=== PATIENT | male | born 1955 | race Caucasian/White ===

== ENCOUNTER 2016-06-12 15:01 | Observation (INO) | payer BC ==
[2016-06-12] MEDS ORDERED: Aspirin Low Dose CHEW TAB* 81 MG PO ONE (15:03)
[2016-06-12] MEDS ORDERED: Morphine INJ* 2 MG/ML 1 ML SYRINGE IV PRN (15:28)
[2016-06-12] MEDS ORDERED: Ondansetron INJ* 2 MG/ML VIAL IV PRN (15:28)
[2016-06-12] MEDS ORDERED: Nitroglycerin TAB 0.4 MG* 0.4 MG TAB SL ONE (15:30)
--- NOTE | 2016-06-12 15:30 | RAD ---
HISTORY: Chest pain COMPARISONS: December 08, 2010 VIEWS:1: Single frontal portable view of the chest at 3:23 PM FINDINGS: LINES AND TUBES: None. CARDIOMEDIASTINAL SILHOUETTE: The cardiomediastinal silhouette is normal for portable technique. PLEURA: The costophrenic angles are sharp. No pleural abnormalities are noted. LUNG PARENCHYMA: There is a diffuse pattern of coarse reticular opacification with a more focal area of nodularity in the right upper lung. This is stable since 2010 consistent with benign nodule. ABDOMEN: The upper abdomen is clear. There is no subphrenic gas. BONES AND SOFT TISSUES: No bone or soft tissue abnormalities are noted. IMPRESSION: STABLE CHRONIC THORACIC CHANGES. NO ACTIVE CARDIOPULMONARY PULMONARY DISEASE
[2016-06-12 15:34] LABS: Hematocrit 36 % (42-52); Hemoglobin 12.4 g/dl (14.0-18.0); Mean Corpuscular HGB Conc 35 g/dl (31-36); Mean Corpuscular Hemoglobin 32 pg (27-31); Mean Corpuscular Volume 92 fL (80-94); Mean Platelet Volume 6 um3 (7.4-10.4); Red Blood Count 3.88 10^6/ul (4.0-5.4); Red Cell Distribution Width 13 % (10.5-15); White Blood Count 5.2 10^3/ul (3.5-10.8)
[2016-06-12 15:52] LABS: Albumin 4.4 g/dL (3.2-5.2); BUN/Creatinine Ratio 15.6 (8-20); Calcium 9.3 mg/dL (8.6-10.3); EGFR Non-African American 85.5 (>60); Globulin 2.6 g/dL (2-4); Potassium 4.1 mmol/L (3.5-5.0); Total Bilirubin 0.5 mg/dL (0.2-1.0)
--- NOTE | 2016-06-12 15:56 | ED ---
[place], DoctorSelena scribed for Anna Lin MD on 06/12/16 at 1509 . HPI Chest Pain - HPI Summary HPI Summary: 61 year old male arrived to [facility] c/o discomfort this morning in the chest pain/ discomfort. He indicates that he has been feeling indigestion for the past three days in the middle of the sternum; but did not feel any pain with exercise two days ago. 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 He is now feeling some discomfort in his chest and left shoulder, but the pain has reduced. He has a PMHx of seizures; no PMHx of HTN or DM. Pt denies any FHx of early CAD. - History of Current Complaint Chief Complaint: EDChestPainROMI Hx Obtained From: Patient Onset/Duration: Started Hours Ago Timing: Lasting Hours Initial Severity: Moderate Current Severity: Moderate Chest Pain Location: Mid Sternal Chest Pain Radiates: Yes Chest Pain Radiates To:: Shoulder Associated Signs and Symptoms: Positive: Chest Pain - Allergy/Home Medications Allergies/Adverse Reactions: Allergies Allergy/AdvReac Type Severity Reaction Status Date / Time Nitrofurantoin Allergy Rash Verified 06/16/15 15:05 [From Macrodantin] Home Medications: Home Medications carBAMazepine TAB(*) [TEGretol TAB(*)] 400 mg PO BID 06/12/16 [History Confirmed 06/12/16] PMH/Surg Hx/FS Hx/Imm Hx Endocrine/Hematology History: Denies: Hx Diabetes Cardiovascular History: Denies: Hx Hypertension Infectious Disease History: Denies: Traveled Outside the [place] in Last 30 Days - Family History Known Family History: Positive: Other - family history of AFib Negative: Cardiac Disease - Social History Occupation: Employed Full-time Lives: With Family Substance Use Type: Reports: None Hx Tobacco Use: No Smoking Status (MU): Never Smoked Tobacco Review of Systems Negative: Fever Positive: Chest Pain Positive: Other - indigestion Positive: Other - mild left shoulder pain All Other Systems Reviewed And Are Negative: Yes Physical Exam Triage Information Reviewed: Yes Vital Signs On Initial Exam: Initial Vitals Temp Pulse Resp BP Pulse Ox 97.7 F 91 16 135/85 98 06/12/16 15:10 06/12/16 15:10 06/12/16 15:10 06/12/16 15:10 06/12/16 15:10 Vital Signs Reviewed: Yes Appearance: Positive: Well-Appearing, No Pain Distress Skin: Positive: Warm, Skin Color Reflects Adequate Perfusion, Dry Eyes: Positive: EOMI, JUSTICE ENT: Positive: Pharynx normal, TMs normal Neck: Positive: Supple, Nontender Respiratory/Lung Sounds: Positive: Clear to Auscultation, Breath Sounds Present. Negative: Rales, Rhonchi, Wheezes Cardiovascular: Positive: RRR. Negative: Murmur, Rub Abdomen Description: Positive: Nontender, Soft. Negative: Distended, Guarding Bowel Sounds: Positive: Present Musculoskeletal: Positive: Strength/ROM Intact. Negative: Edema Left, Edema Right Neurological: Positive: Sensory/Motor Intact, Alert, Oriented to Person Place, Time, CN Intact II-III Psychiatric: Positive: Affect/Mood Appropriate Diagnostics - Vital Signs Vital Signs Temp Pulse Resp BP Pulse Ox 06/12/16 15:39 84 06/12/16 15:10 97.7 F 91 16 135/85 98 - Laboratory Lab Results: Lab Results 06/12/16 06/12/16 06/12/16 Range/Units 15:20 15:20 15:20 WBC 5.2 (3.5-10.8) 10^3/ul RBC 3.88 L (4.0-5.4) 10^6/ul Hgb 12.4 L (14.0-18.0) g/dl Hct 36 L (42-52) % MCV 92 (80-94) fL MCH 32 H (27-31) pg MCHC 35 (31-36) g/dl RDW 13 (10.5-15) % Plt Count 181 (150-450) 10^3/ul MPV 6 L (7.4-10.4) um3 Neut % (Auto) 63.0 (38-83) % Lymph % (Auto) 29.3 (25-47) % Barron % (Auto) 5.9 (1-9) % Eos % (Auto) 1.0 (0-6) % Baso % (Auto) 0.8 (0-2) % Absolute Neuts (auto) 3.3 (1.5-7.7) 10^3/ul Absolute Lymphs (auto) 1.5 (1.0-4.8) 10^3/ul Absolute Monos (auto) 0.3 (0-0.8) 10^3/ul Absolute Eos (auto) 0.1 (0-0.6) 10^3/ul Absolute Basos (auto) 0 (0-0.2) 10^3/ul Absolute Nucleated RBC 0 10^3/ul Nucleated RBC % 0 Sodium 138 (133-145) mmol/L Potassium 4.1 (3.5-5.0) mmol/L Chloride 103 (101-111) mmol/L Carbon Dioxide 30 (22-32) mmol/L Anion Gap 5 (2-11) mmol/L BUN 14 (6-24) mg/dL Creatinine 0.90 (0.67-1.17) mg/dL Est GFR ( Amer) 110.0 (>60) Est GFR (Non-Af Amer) 85.5 (>60) BUN/Creatinine Ratio 15.6 (8-20) Glucose 96 (70-100) mg/dL Lactic Acid 1.0 (0.5-2.0) mmol/L Calcium 9.3 (8.6-10.3) mg/dL Total Bilirubin 0.50 (0.2-1.0) mg/dL AST 18 (13-39) U/L ALT 27 (7-52) U/L Alkaline Phosphatase 72 (34-104) U/L Troponin I 0.00 (<0.04) ng/mL Total Protein 7.0 (6.4-8.9) g/dL Albumin 4.4 (3.2-5.2) g/dL Globulin 2.6 (2-4) g/dL Albumin/Globulin Ratio 1.7 (1-3) Result Diagrams: 06/12/16 15:20 06/12/16 15:20 Lab Statement: Any lab studies that have been ordered have been reviewed, and results considered in the medical decision making process. - EKG 15:06 Cardiac Rate: NL - 86 bpm EKG Rhythm: Sinus Rhythm - normal Ectopy: None EKG Interpretation: non-specific T-wave progression Chest Pain Course/Dx - Course Course Of Treatment: 61 yo male no cad risk factors who has been having "indigestion" like symptoms for the last few days but noted pressure starting an hour ago. Pt's ekg shows non-specific twave changes, Dr. Hicks was contacted to compare ekgs but his previous ekg is not available. Dr. Womack agreed for pt to be brought in as an obv. Pt is pain free now - Diagnoses Provider Diagnoses: Chest pain - Provider Notifications Discussed Care Of Patient With: 15:20 - Discussed care of pt with Dr. Barrios ( Hospitalist); Dr. Barrios agrees to admit him. Discharge - Discharge Plan Condition: Stable Disposition: ADMITTED TO [facility] The documentation as recorded by the Doctor gentile Tahera accurately reflects the service I personally performed and the decisions made by me, Anna Lin MD.
[2016-06-12] MEDS: Lidocaine 2% VISCOUS* 15 ML UDC PO ONE ×2 (16:00→16:47)
[2016-06-12] MEDS: Al Hydrox/Mg Hydrox/Simet LIQ* 30 ML UDC PO ONE ×2 (16:00→16:47)
[2016-06-12 18:14] LABS: Carbamazepine 10.6 mcg/mL (4.0-12.0)
[2016-06-12] MEDS ORDERED: Nitroglycerin TAB 0.4 MG* 0.4 MG TAB SL PRN (19:36)
[2016-06-12] MEDS ORDERED: Enoxaparin(*) 40 MG/0.4 ML SYR SUBCUT SCH (20:00)
[2016-06-12] MEDS: carBAMazepine TAB(*) 200 MG PO SCH (21:07)
[2016-06-12] MEDS ORDERED: Al Hydrox/Mg Hydrox/Simet LIQ* 30 ML UDC PO PRN (22:54)
--- NOTE | 2016-06-13 05:33 | PN ---
Progress Note - Progress Note Note: Seen ~2330 this shift after nursing reported return of sharp-reshma sub-sternal chest pressure, no radiation, SOB, N/V, palpitations, or light-headedness. 30cc Maalox minimally effective reducing from 4/10 to "slightly less". ECG benign. 2AM troponin was 0. Continue close monitoring, stress test reportedly planned for AM but no order seen.
--- NOTE | 2016-06-13 05:48 | HP ---
HISTORY AND PHYSICAL: DATE OF ADMISSION: 06/12/16 TIME OF MY EVALUATION: 2 p.m. PRIMARY CARE PROVIDER: Rakan Oquendo MD CHIEF COMPLAINT: Chest pain. 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 The patient has been feeling indigestion for several days over the weekend in the mid sternum. There was some radiation into his left upper arm. There was no association with pain. He did eat some spicy food over the weekend and he had classic indigestion; he thought that was the cause. However , one hour prior to presentation, he experienced substernal chest pressure, but he took TUMS x2 with no effect. The patient felt mild hunger pains and mild nausea, but no actual lightheadedness. He denied any diaphoresis or fainting. He denies any feelings of being ill. There was no upper respiratory infection, cough or sputum production. He denies any fevers. There has been no chest trauma or heavy lifting. He does have a stressful job. The patient denies any history of coronary artery disease. He had an echocardiogram after a workup for shortness of breath; this was several years ago, around 2011. The echocardiogram showed no wall motion abnormality and no valvular disease. He did have a stress test several years ago, again pursuant to his unexplained shortness of breath, and he had a rate-related left bundle branch block. Again, this was when he had his echocardiogram. The patient is currently chest pain free. He received aspirin in the emergency room, but has not received any anticoagulation. His initial troponin is zero. His EKG shows only nonspecific lateral T-wave flattening, not inversion. There are no ST segment elevations or depressions. The patient has got stable vital signs, and was referred to the hospitalist service for continuation of his rule out of myocardial infarction and potentially a stress test. PAST MEDICAL HISTORY: 1. Seizure disorder, stable on carbamazepine. 2. Shortness of breath with some nonspecific pulmonary fibrosis, but normal PFTs. FAMILY HISTORY: Significant for colon cancer, but also coronary disease in his parents, but this developed in their 70s and 80s. ALLERGIES: NITROFURANTOIN OUTPATIENT MEDICATION: Carbamazepine 400 mg by mouth twice daily - well tolerated, with normal levels demonstrated below. SOCIAL HISTORY: The patient is a physician learning and development administrator. He works at [employer]. He is nonsmoker and drinks alcohol only socially. He is with three children; everyone is healthy. His is also a physician and the surrogate decision maker. Her name is Mounika Ferguson, and she can be reached at . The patient is full code. REVIEW OF SYSTEMS: Review of 14 systems was accomplished at the bedside. It was largely negative except for the pertinent positives as mentioned above in the HPI and past medical history. In his GI system, I noted he has sigmoid diverticulosis and had some polyps removed in 2015. Again, the patient has not been sick. There are no urinary symptoms, no visual complaints, no dysphasia, but perhaps suboptimally-treated reflux. He tells me that he is concerned about PPI interactions with his carbamazepine, but has not tried different formulations or done research into which PPI might be plausible without interacting with the carbamazepine. No skin rashes or breakdown. No neurologic symptoms. PHYSICAL EXAMINATION ON ADMISSION GENERAL APPEARANCE: A middle-aged elderly appearing man, appears stated age, in no apparent distress. He is awake and alert, and oriented x3, answering questions appropriately, alert, interactive and pleasant. VITAL SIGNS: Temperature 97.7 degrees Fahrenheit, pulse rate initially 91, but down into the 70s thereafter, respirations 13-14 and regular, oxygen saturation 98% on room air, blood pressure 120s-130s/80s. HEENT: Oropharynx is clear. Mucous membranes are moist. NECK: Supple. No elevated JVD appreciated. LUNGS: Clear. Breath sounds anteriorly and posteriorly good breath excursions. HEART: Regular rate and rhythm. No murmurs or rubs appreciated. ABDOMEN: Soft and nontender. SKIN: Dry and intact throughout. EXTREMITIES: Without clubbing cyanosis or edema. NEUROLOGIC: He moves all extremities equally. He can ambulate independently. PSYCH: Normal affect. No acute anxiety or depression. LYMPH: No adenopathy appreciated. DIAGNOSTIC STUDIES/LAB DATA: White blood cell count normal at 5.2, hemoglobin 12.4 (marginally below baseline and, compared to most recent value in 2016, at 14.7 - low). Platelets 181. Blood chemistries are entirely normal including a CK-MB of 2.8 and initial troponin of zero. Toxicology includes a carbamazepine level of 10.6 with the goal level between 4 and 12. EKG: Normal sinus rhythm at 86 beats per minute. He has got good R-wave progression. No ST segment depressions, but lateral T-wave flattening, and without a previous EKG to compare with. His chest x-ray was unremarkable save a diffuse pattern of coarse reticular opacification with more areas of nodularity in the right upper lung, stable since 2010, consistent with benign nodule. 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 PLAN/RECOMMENDATIONS: Plan is to place the patient on observation status for serial cardiac enzymes with intent to treat symptoms if they recur, monitor the patient on telemetry, and proceed with stress testing if myocardial infarction is, indeed, ruled out. PLAN BY MEDICAL PROBLEM: 1. Chest pain with potential for acute coronary syndrome. I agree with aspirin , and continue daily aspirin for now. Sublingual nitroglycerin on a p.r.n. basis. Continue telemetry monitoring. IV morphine 2 mg IV q. 4 p.r.n. chest pain. Supplemental oxygen as needed. Check a.m. cholesterol - fasting. If negative cardiac enzymes and unchanged EKGs, proceed with exercise treadmill stress test in the morning as ordered. 2. Seizure disorder - continue outpatient carbamazepine level is acceptable. 3. DVT prophylaxis - the patient qualifies for Lovenox subcu, but is already ambulating and may defer this if he choses. 4. Full code. Surrogate decision maker stated in the social history. 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 Of note, I spoke with his , Mounika, over the phone and relayed the major aspects of the plan to her, and she seems satisfied with the plan as stated. CC: Dr. Oquendo.* [id number]/CPS #: [id number] MTDD
[2016-06-13] MEDS: carBAMazepine TAB(*) 200 MG PO SCH (08:00)
[2016-06-13 08:03] VITALS: BP 114/72
[2016-06-13 08:53] LABS: HDL Cholesterol 46.9 mg/dL
--- NOTE | 2016-06-13 12:48 | RAD ---
Edited for charges. INDICATION: Chest pain, shortness of breath. COMPARISON: January 11, [address] No previous nuclear medicine cardiac perfusion exam available for comparison on the [facility] PACS. TECHNIQUE: 10.430 mCi of Tc-99m Myoview were administered IV. SPECT images of the heart were obtained. Later on the same day under the direction of Dr. Lamb, an exercise stress test was performed. The patient achieved a peak heart rate of 192 bpm, 121 % of the age- predicted maximum. Subsequently, the patient was given an IV injection of 25.820 mCi Tc- 99m Myoview. SPECT images of the heart were obtained and a gated wall motion study was performed. FINDINGS: Gated wall motion images were obtained at stress and demonstrate wall motion to be within normal limits. The calculated left ventricular ejection fraction is 67 % at stress. Estimated LEFT ventricular end diastolic volume is 62 mL. TID 0.82. Based on review of the attenuation corrected and non corrected images the distribution of radiopharmaceutical within the myocardium on the stress and rest images is within normal limits. No fixed or reversible regions of hypoperfusion evident. While detail is limited there is no gross change in the magnitude of interstitial lung disease compared with the [address] IMPRESSION: 1. No evidence for stress induced myocardial ischemia or presence of an infarct. 2. Normal left ventricular wall motion and ejection fraction. ASSESSMENT: LOW RISK. Based on imaging criteria from ACC/AHA 2002 Guideline Update for the Management of Patients With Chronic Stable Angina Table 23. Noninvasive Risk Stratification. MTDD
--- NOTE | 2016-06-14 15:45 | ED ---
I, Selena Singh, scribed for Anna Lin MD on 06/12/16 at 1606 . Progress - Progress Note Progress Note: Re-Eval at 16:05 - Informed pt about treatment plan and hospital admission. Pt was agreeable. Course/Dx - Course Course Of Treatment: 61 yo male no cad risk factors who has been having "indigestion" like symptoms for the last few days but noted pressure starting an hour ago. Pt's ekg shows non-specific twave changes, Dr. Hicks was contacted to compare ekgs but his previous ekg is not available. Dr. Womack agreed for pt to be brought in as an obv. Pt is pain free now - Diagnoses Provider Diagnoses: Chest pain - Provider Notifications Discussed Care Of Patient With: 15:20 - Discussed care of pt with Dr. Barrios ( Hospitalist); Dr. Barrios agrees to admit him. The documentation as recorded by the scribe, Selena Singh accurately reflects the service I personally performed and the decisions made by me, Anna Lin MD.
== END 2016-06-13 14:29 | disposition home or self-care (01) ==
LOC: ED 15:01 → MEDTELE 15:21
PROVIDERS: ADMIT Internal Medicine; ATTEND Internal Medicine
DX: R07.9 Chest pain, unspecified (principal); G40.909 Epilepsy, unspecified, not intractable, without status epilepticus; J84.10 Pulmonary fibrosis, unspecified
CPT/HCPCS: 36415; 71010; 78452; 80053; 80061; 80156; 82553; 83605; 84484; 85025; 93005; 93017; 96374; 96376; 99283; A9270-GY; A9502; G0378

== ENCOUNTER 2016-12-07 07:09 | Emergency (ER) | payer BC ==
[2016-12-07] MEDS ORDERED: Ibuprofen TAB* 600 MG PO ONE (07:25)
[2016-12-07 07:27] VITALS: BP 96/50
--- NOTE | 2016-12-07 07:50 | UC ---
Rod Claire Angela scribed for Katherine Brantley MD on 12/07/16 at 0737 . General HPI - HPI Summary HPI Summary: This pt is a 61 y/o male presenting to [facility] c/o productive cough, headache, chills x3 days. Pt reports that at the end of Sunday (3 days ago) pt felt ill with chills, didn't eat dinner and went to bed. Upon waking up on Sunday (2 days ago) he had a productive cough but felt better. He describes his sputum as green and thick. Last night pt notes he had chills, severe cough, and was dyspnic. Pt notes that while walking the dog this morning he felt SOB. He really felt SOB this morning and had not noticed this before. He notes decreased appetite and tries to eat 1 meal a day. Pt states his urine is clear and not dark yellow. He left work early on Sunday but didn't go to work Sunday or Sunday. Pt denies chest pain, abd pain, nausea, vomiting, diarrhea, photophobia, sick contacts. He visited his mom two weekends ago in a detention but doesn't believe his mom is currently ill. Pt had his flu shot 3 weeks ago. PMHx: seizures and pneumonia (approximately 2 episodes). Pt states he has not had a seizure in 35-40 years. No PMHx of respiratory problems, including asthma. - History of Current Complaint Chief Complaint: UCGeneralIllness Stated Complaint: CHILLS,COUGH Time Seen by Provider: 12/07/16 07:13 Hx Obtained From: Patient Onset/Duration: Lasting Days Timing: Constant Onset Severity: Moderate Current Severity: Severe Associated Signs & Symptoms: Positive: Cough - productive, Headache, SOB, Other - chills, dyspnic. Negative: Abdominal Pain, Chest Pain, Diarrhea, Nausea, Vomiting - Allergy/Home Medications Allergies/Adverse Reactions: Allergies Allergy/AdvReac Type Severity Reaction Status Date / Time Nitrofurantoin Allergy Rash Verified 12/07/16 07:21 [From Macrodantin] Home Medications: Home Medications Piosujrxhautn-Rawztxapov-Wsvvs [VICKS DAYQUIL/NYQUIL COLD (Liquid)] 2 tab PO BEDTIME PRN 12/07/16 [History Confirmed 12/07/16] PMH/Surg Hx/FS Hx/Imm Hx Previously Healthy: Yes Other Endocrine History: DENIES: diabetes Respiratory History: Pneumonia Other Respiratory History: DENIES: asthma Neurological History: Seizures - last seizure was years ago. - Surgical History Surgical History: Yes Surgery Procedure, Year, and Place: Urethral stricture surgery - Family History Known Family History: Positive: Cardiac Disease - both parents had atrial fibrillation., Other - father had CA colon - Social History Occupation: Employed Full-time Alcohol Use: Occasionally Substance Use Type: Excessive Caffeine Substance Use Comment - Amount & Last Used: 5, 12 oz servings of coffee today Smoking Status (MU): Never Smoked Tobacco - Immunization History Most Recent Influenza Vaccination: 11/2016 Review of Systems Constitutional: Chills, Other - decreased appetite Skin: Negative Respiratory: Shortness Of Breath, Cough - productive Cardiovascular: Negative Gastrointestinal: Negative Genitourinary: Negative Motor: Negative Neurovascular: Negative Musculoskeletal: Negative Neurological: Headache All Other Systems Reviewed And Are Negative: Yes Physical Exam Triage Information Reviewed: Yes Appearance: Ill-Appearing - Tachypneic, mildly diaphoretic, pale. Vital Signs: Initial Vital Signs Temp 101.5 F 12/07/16 07:14 Pulse 130 12/07/16 07:14 Resp 24 12/07/16 07:14 Pulse Ox 96 12/07/16 07:14 Eyes: Positive: Conjunctiva Clear ENT: Positive: Pharynx normal, TMs normal - partially obscurec by cerumen Dental Exam: Normal Neck: Positive: Supple, Nontender, No Lymphadenopathy Respiratory: Positive: Respiratory distress - tachypneic, mild indrawing, Decreased breath sounds - resonant percussion, Rhonchi - right upper lung field. , Expiration - prolonged expiration Cardiovascular: Positive: No Murmur, Pulses Normal, Tachycardia Abdomen Description: Positive: Nontender, No Organomegaly, Soft Musculoskeletal Exam: Normal Neurological: Positive: Alert, Muscle Tone Normal, Fatigued Psychological Exam: Normal Skin Exam: Normal Course/Dx - Course Course Of Treatment: Pt medications reviewed this visit. Tachycardic, febrile, tachypneic--meets sepsis criteria. Clinical presentation hightly suspicious for pneumonia. Agrees to ambulance transfer to ER for evaluation. - Differential Dx - Multi-Symptom Differential Diagnoses: Sepsis, Other - pneumonia. Provider Diagnoses: suspected sepsis/pneumonia. - Physician Notifications Discussed Patient Care With: Arya Mcdaniel Time Discussed With Above Provider: 07:25 Instructed by Provider To: Transfer Discharge - Discharge Plan Condition: Fair Disposition: TRANS HIGHER LVL OF CARE FAC The documentation as recorded by the Rod gentile Angela accurately reflects the service I personally performed and the decisions made by me, Katherine Brantley MD.
== END 2016-12-07 08:00 | disposition short-term general hospital (02) ==
LOC: UCEAST 07:09
DX: R05 Cough (principal); G40.909 Epilepsy, unspecified, not intractable, without status epilepticus; Z88.3 Allergy status to other anti-infective agents; Z87.01 Personal history of pneumonia (recurrent)
CPT/HCPCS: 99213; A9270-GY; G0463

== ENCOUNTER 2016-12-07 08:26 | Inpatient (IN) | payer BC ==
[2016-12-07] MEDS ORDERED: NS 0.9% 1000 ML*IV.FLUID IV ONE (08:44)
[2016-12-07] MEDS ORDERED: Levofloxacin 750 MG IVPREMIX(* 750 MG/150 ML BAG IVPB ONE (08:48)
[2016-12-07 08:59] LABS: Hematocrit 37 % (42-52); Hemoglobin 12.7 g/dl (14.0-18.0); Mean Corpuscular HGB Conc 34 g/dl (31-36); Mean Corpuscular Hemoglobin 32 pg (27-31); Mean Corpuscular Volume 93 fL (80-94); Mean Platelet Volume 6 um3 (7.4-10.4); Red Blood Count 3.98 10^6/ul (4.0-5.4); Red Cell Distribution Width 13 % (10.5-15); White Blood Count 7.3 10^3/ul (3.5-10.8)
[2016-12-07 09:11] LABS: Albumin 4.1 g/dL (3.2-5.2); BUN/Creatinine Ratio 11.4 (8-20); Calcium 8.7 mg/dL (8.6-10.3); EGFR Non-African American 71.6 (>60); Globulin 2.7 g/dL (2-4); Total Bilirubin 0.5 mg/dL (0.2-1.0); Total Protein 6.8 g/dL (6.4-8.9)
[2016-12-07 09:12] LABS: Troponin I 0.01 ng/mL (<0.04)
--- NOTE | 2016-12-07 09:12 | RAD ---
HISTORY: Cough, fever COMPARISONS: December 08, 2010 VIEWS: 1: frontal portable view of the chest at 9:00 AM FINDINGS: LINES AND TUBES: None. CARDIOMEDIASTINAL SILHOUETTE: The cardiomediastinal silhouette is normal for portable technique. PLEURA: The costophrenic angles are sharp. No pleural abnormalities are noted. LUNG PARENCHYMA: There is a diffuse coarse pattern of reticular opacification that is similar to the 2011 examination. ABDOMEN: The upper abdomen is clear. There is no subphrenic gas. BONES AND SOFT TISSUES: Degenerative changes are noted of the spine IMPRESSION: STABLE CHRONIC INTERSTITIAL CHANGES.
[2016-12-07] MEDS ORDERED: Acetaminophen TAB* 325 MG PO PRN (10:54)
[2016-12-07] MEDS ORDERED: Albuterol 2.5 MG/3 ML NEB.SOL* (0.083%) INH PRN (10:54)
[2016-12-07] MEDS ORDERED: PROCHLORPERAZINE INJ 5 MG/ML 2 ML VIAL IV PRN (10:55)
[2016-12-07] MEDS ORDERED: NS 0.9% 1000 ML* 2,000 ML IV ONE (10:57)
[2016-12-07] MEDS ORDERED: guaiFENesin LIQ* 100 MG/5 ML UDC PO PRN (11:38)
--- NOTE | 2016-12-07 12:44 | HP ---
HISTORY AND PHYSICAL: DATE OF ADMISSION: 12/07/16 TIME OF EVALUATION: 10:30 a.m. PRIMARY CARE PROVIDER: The patient does not have a primary care provider at this point, used to be Dr. Oquendo but he retired. CHIEF COMPLAINT: Shortness of breath. 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 He states he was on his usual state of health until 3 days ago whe n he went home from work with some dry cough and malaise. The next day, the symptoms persisted with this persistent cough, chills, but the next day initially he thought he was actually "turning the c orner" and was planning to return to work today, but overnight he woke up feeling cold with chills, worsening of his cough, and he decided to go to [facility] first in the morning. He went to [facility] with his dog and has felt very dyspneic. At [facility], he was found to have a temperature of 101.5 with heart rate of 130 and blood pressure of 96/50. As the patient met sepsis criteria, he was advised to come to the emergency room for further evaluation. He denies chest pain, palpitations, nausea, vomiting, diarrhea, or urinary complaints. The patient states that he was diagnosed with interstitial lung disease 15 years ago and was actuall y seen by Pulmonology at [facility]. He was told that he did not have sarcoidosis that he only had interstitial lung disease of unclear etiology and his PFTs were normal at that time. He had fo llowup x-rays that showed stable disease. PAST MEDICAL HISTORY: 1. Seizure disorder. 2. Interstitial lung disease as described above. 3. Diverticulosis. 4. Admission in June 2016 for chest pain. At that point, acute coronary syndrome was ruled out. His stress test was negative and the impression was that the symptoms were likely GI in nature. He was discharged on omeprazole. MEDICATION LIST: Carbamazepine 400 mg p.o. b.i.d. ALLERGIES: With NITROFURANTOIN, the patient had a rash. FAMILY HISTORY: He has a history of colon cancer in the family. Parents had coronary disease and a trial fibrillation. 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 No history of tobacco, alco hol, or drug use. Surrogate decision maker is his , who is also a physician, Ida Ferguson, phone number is [phone]. REVIEW OF SYSTEMS: A 14-point review of systems was performed and all the pertinent negative and po sitive findings are in the HPI. PHYSICAL EXAMINATION GENERAL: The patient is a pleasant gentleman, sitting up in bed, in no acute distress. I did see h im walking from the bathroom back to his room and he does become short of breath with exertion. VITAL SIGNS: Temperature 99.1, heart rate is 91, respiratory rate is 20, oxygen saturation is 95% o n room air, blood pressure is 92/56. HEENT: Pupils are equal. Moist mucous membranes. CHEST: Breath sounds present bilaterally with diffuse fine crackles. CVS: Normal S1 and S2. Regular rate and rhythm. ABDOMEN: Soft, nontender. Bowel sounds present. EXTREMITIES: No edema. NEUROLOGIC: He is alert, awake, oriented x3. Able to move all 4 extremities. DIAGNOSTIC STUDIES/LAB DATA: CBC showed WBC of 7.3, hemoglobin of 12.7, hematocrit of 37, platelet s of 161 with 85% neutrophils. INR is 1.04. Chemistry showed a sodium of 133, potassium of 4, chlo ride of 101, bicarb of 22, BUN of 12, creatinine of 1.05, glucose of 246, lactic acid of 3.8, calciu m 8.7. LFTs are normal. CRP is 88.7. Influenza test and urinalysis were sent but they are pending at the time of this dictation. Chest x-ray showed stable chronic interstitial changes when compared to his prior x- ray from 2010. 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 1. Sepsis. The patient met sepsis criteria with tachypnea, tachycardia, and fever. The source is probably pneumonia. 2. Community-acquired pneumonia. I believe his chest x-ray does not show any new infiltrates at th is point because he appears to be intravascularly dry. I suspect that with IV hydration, an infiltr ate will probably flourish. Blood cultures were sent. Legionella and pneumococcal antigens will be checked. He was already started empirically on levofloxacin. We are going to continue aggressive fluid resuscitation. 3. Lactic acidosis. Secondary to sepsis. We will continue IV fluid resuscitation and monitor his lactic acid level. 4. Interstitial lung disease. Although the patient denies the diagnosis of sarcoidosis, that is wh at his imaging suggests. I requested a consultation with Pulmonology (Dr. Álvarez). 5. Hyperglycemia. The patient denies history of diabetes and he was fasting this morning. At this point, I am going to check hemoglobin A1c. He will have fingersticks a.c. and h.s. and he will get coverage if his hyperglycemia persists. 6. Seizure disorder. We will check a carbamazepine level and continue the same dose as prescribed. 7. DVT prophylaxis. The patient has a score of 3 on DVT Prophylaxis Risk Assessment Guide and he w ill be started on subcutaneous heparin. 8. Code status is full. TIME SPENT: Approximately 65 minutes was spent with the patient interview, medical records review, physical examination to complete the admission. More than half this time was spent [id number] wit h the patient in coordination of care. [id number]/[facility] #: [id number]
[2016-12-07 13:29] LABS: Carbamazepine 14.5 mcg/mL (4.0-12.0)
--- NOTE | 2016-12-07 14:07 | ED ---
Chris Claire Benjamin, scribed for Arya Mcdaniel MD on 12/07/16 at 0844 . Shortness of Breath - HPI Summary HPI Summary: 61yo male c/o cough and generalized myalgia for 3 days. Pt also reports sight SOB and fast breathing. Pt reports a fever of 101.5F and that his blood pressure is lower than his baseline. PMHx of PNA. - History of Current Complaint Hx Obtained From: Patient Onset/Duration: Gradual Onset, Lasting Days - 3 days Current Severity: Mild Dyspnea At: Rest Aggrevating Factors: Nothing Alleviating Factors: Nothing Associated Signs & Symptoms: Cough (Nonproductive), Fever - Allergy/Home Medications Allergies/Adverse Reactions: Allergies Allergy/AdvReac Type Severity Reaction Status Date / Time Nitrofurantoin Allergy Rash Verified 12/07/16 07:21 [From Macrodantin] PMH/Surg Hx/FS Hx/Imm Hx Endocrine/Hematology History: Denies: Hx Diabetes Cardiovascular History: Reports: Hx Angina, Hx Hypercholesterolemia Denies: Hx Coronary Artery Disease, Hx Hypertension, Hx Myocardial Infarction , Hx Valvular Heart Disease Respiratory History: Denies: Hx Asthma, Hx Chronic Obstructive Pulmonary Disease (COPD) History: Reports: Other Problems/Disorders - urethral strictures Sensory History: Reports: Hx Contacts or Glasses Denies: Hx Hearing Aid Opthamlomology History: Reports: Hx Contacts or Glasses Neurological History: Reports: Hx Seizures - Surgical History Surgery Procedure, Year, and Place: Urethral stricture surgery Infectious Disease History: No Infectious Disease History: Denies: Traveled Outside the [place] in Last 30 Days - Family History Known Family History: Positive: Cardiac Disease - both parents had atrial fibrillation., Other - father had CA colon - Social History Occupation: Employed Full-time Lives: With Family Alcohol Use: Occasionally Substance Use Type: Reports: Excessive Caffeine Substance Use Comment - Amount & Last Used: 5, 12 oz servings of coffee today Hx Tobacco Use: No Smoking Status (MU): Never Smoked Tobacco Review of Systems Positive: Fever Eyes: Negative ENT: Negative Cardiovascular: Negative Positive: Shortness Of Breath, Cough Gastrointestinal: Negative Genitourinary: Negative Musculoskeletal: Negative Skin: Negative Neurological: Negative Psychological: Normal All Other Systems Reviewed And Are Negative: Yes Physical Exam Triage Information Reviewed: Yes Vital Signs On Initial Exam: Initial Vitals Temp Pulse Resp BP Pulse Ox 99.7 F 115 26 105/47 94 12/07/16 08:29 12/07/16 08:29 12/07/16 08:29 12/07/16 08:29 12/07/16 08:29 Vital Signs Reviewed: Yes Appearance: Positive: Well-Appearing, No Pain Distress, Well-Nourished Skin: Positive: Warm, Skin Color Reflects Adequate Perfusion, Dry Head/Face: Positive: Normal Head/Face Inspection Eyes: Positive: Normal, EOMI, JUSTICE ENT: Positive: Normal ENT inspection, Hearing grossly normal Neck: Positive: Supple, Nontender Respiratory/Lung Sounds: Positive: Clear to Auscultation, Breath Sounds Present Cardiovascular: Positive: Pulses are Symmetrical in both Upper and Lower Extremities, Tachycardia. Negative: Murmur Abdomen Description: Positive: Nontender, Soft Bowel Sounds: Positive: Present Musculoskeletal: Positive: Strength/ROM Intact Neurological: Positive: Sensory/Motor Intact, Alert, Oriented to Person Place, Time Psychiatric: Positive: Affect/Mood Appropriate Diagnostics - Vital Signs Vital Signs Temp Pulse Resp BP Pulse Ox 12/07/16 08:29 99.7 F 115 26 105/47 94 - Laboratory Lab Results: Lab Results 12/07/16 12/07/16 12/07/16 Range/Units 07:47 07:47 07:47 WBC 7.3 (3.5-10.8) 10^3/ul RBC 3.98 L (4.0-5.4) 10^6/ul Hgb 12.7 L (14.0-18.0) g/dl Hct 37 L (42-52) % MCV 93 (80-94) fL MCH 32 H (27-31) pg MCHC 34 (31-36) g/dl RDW 13 (10.5-15) % Plt Count 161 (150-450) 10^3/ul MPV 6 L (7.4-10.4) um3 Neut % (Auto) 85.5 H (38-83) % Lymph % (Auto) 7.9 L (25-47) % Henry % (Auto) 5.9 (1-9) % Eos % (Auto) 0.5 (0-6) % Baso % (Auto) 0.2 (0-2) % Absolute Neuts (auto) 6.3 (1.5-7.7) 10^3/ul Absolute Lymphs (auto) 0.6 L (1.0-4.8) 10^3/ul Absolute Monos (auto) 0.4 (0-0.8) 10^3/ul Absolute Eos (auto) 0 (0-0.6) 10^3/ul Absolute Basos (auto) 0 (0-0.2) 10^3/ul Absolute Nucleated RBC 0 10^3/ul Nucleated RBC % 0.1 INR (Anticoag Therapy) 1.04 (0.89-1.11) Sodium 133 (133-145) mmol/L Potassium 4.0 (3.5-5.0) mmol/L Chloride 101 (101-111) mmol/L Carbon Dioxide 22 (22-32) mmol/L Anion Gap 10 (2-11) mmol/L BUN 12 (6-24) mg/dL Creatinine 1.05 (0.67-1.17) mg/dL Est GFR ( Amer) 92.0 (>60) Est GFR (Non-Af Amer) 71.6 (>60) BUN/Creatinine Ratio 11.4 (8-20) Glucose 246 H (70-100) mg/dL Hemoglobin A1c (4.0-5.6) % Lactic Acid (0.5-2.0) mmol/L Calcium 8.7 (8.6-10.3) mg/dL Total Bilirubin 0.50 (0.2-1.0) mg/dL AST 20 (13-39) U/L ALT 27 (7-52) U/L Alkaline Phosphatase 66 (34-104) U/L Troponin I 0.01 (<0.04) ng/mL C-Reactive Protein (< 5.00) mg/L Total Protein 6.8 (6.4-8.9) g/dL Albumin 4.1 (3.2-5.2) g/dL Globulin 2.7 (2-4) g/dL Albumin/Globulin Ratio 1.5 (1-3) Carbamazepine 14.5 H (4.0-12.0) mcg/mL Influenza A (Rapid) (Negative) Influenza B (Rapid) (Negative) 12/07/16 12/07/16 12/07/16 Range/Units 07:47 07:47 07:47 WBC (3.5-10.8) 10^3/ul RBC (4.0-5.4) 10^6/ul Hgb (14.0-18.0) g/dl Hct (42-52) % MCV (80-94) fL MCH (27-31) pg MCHC (31-36) g/dl RDW (10.5-15) % Plt Count (150-450) 10^3/ul MPV (7.4-10.4) um3 Neut % (Auto) (38-83) % Lymph % (Auto) (25-47) % Henry % (Auto) (1-9) % Eos % (Auto) (0-6) % Baso % (Auto) (0-2) % Absolute Neuts (auto) (1.5-7.7) 10^3/ul Absolute Lymphs (auto) (1.0-4.8) 10^3/ul Absolute Monos (auto) (0-0.8) 10^3/ul Absolute Eos (auto) (0-0.6) 10^3/ul Absolute Basos (auto) (0-0.2) 10^3/ul Absolute Nucleated RBC 10^3/ul Nucleated RBC % INR (Anticoag Therapy) (0.89-1.11) Sodium (133-145) mmol/L Potassium (3.5-5.0) mmol/L Chloride (101-111) mmol/L Carbon Dioxide (22-32) mmol/L Anion Gap (2-11) mmol/L BUN (6-24) mg/dL Creatinine (0.67-1.17) mg/dL Est GFR ( Amer) (>60) Est GFR (Non-Af Amer) (>60) BUN/Creatinine Ratio (8-20) Glucose (70-100) mg/dL Hemoglobin A1c 5.1 (4.0-5.6) % Lactic Acid 3.8 H* (0.5-2.0) mmol/L Calcium (8.6-10.3) mg/dL Total Bilirubin (0.2-1.0) mg/dL AST (13-39) U/L ALT (7-52) U/L Alkaline Phosphatase (34-104) U/L Troponin I (<0.04) ng/mL C-Reactive Protein 88.72 H (< 5.00) mg/L Total Protein (6.4-8.9) g/dL Albumin (3.2-5.2) g/dL Globulin (2-4) g/dL Albumin/Globulin Ratio (1-3) Carbamazepine (4.0-12.0) mcg/mL Influenza A (Rapid) (Negative) Influenza B (Rapid) (Negative) 12/07/16 Range/Units 10:25 WBC (3.5-10.8) 10^3/ul RBC (4.0-5.4) 10^6/ul Hgb (14.0-18.0) g/dl Hct (42-52) % MCV (80-94) fL MCH (27-31) pg MCHC (31-36) g/dl RDW (10.5-15) % Plt Count (150-450) 10^3/ul MPV (7.4-10.4) um3 Neut % (Auto) (38-83) % Lymph % (Auto) (25-47) % Henry % (Auto) (1-9) % Eos % (Auto) (0-6) % Baso % (Auto) (0-2) % Absolute Neuts (auto) (1.5-7.7) 10^3/ul Absolute Lymphs (auto) (1.0-4.8) 10^3/ul Absolute Monos (auto) (0-0.8) 10^3/ul Absolute Eos (auto) (0-0.6) 10^3/ul Absolute Basos (auto) (0-0.2) 10^3/ul Absolute Nucleated RBC 10^3/ul Nucleated RBC % INR (Anticoag Therapy) (0.89-1.11) Sodium (133-145) mmol/L Potassium (3.5-5.0) mmol/L Chloride (101-111) mmol/L Carbon Dioxide (22-32) mmol/L Anion Gap (2-11) mmol/L BUN (6-24) mg/dL Creatinine (0.67-1.17) mg/dL Est GFR ( Amer) (>60) Est GFR (Non-Af Amer) (>60) BUN/Creatinine Ratio (8-20) Glucose (70-100) mg/dL Hemoglobin A1c (4.0-5.6) % Lactic Acid (0.5-2.0) mmol/L Calcium (8.6-10.3) mg/dL Total Bilirubin (0.2-1.0) mg/dL AST (13-39) U/L ALT (7-52) U/L Alkaline Phosphatase (34-104) U/L Troponin I (<0.04) ng/mL C-Reactive Protein (< 5.00) mg/L Total Protein (6.4-8.9) g/dL Albumin (3.2-5.2) g/dL Globulin (2-4) g/dL Albumin/Globulin Ratio (1-3) Carbamazepine (4.0-12.0) mcg/mL Influenza A (Rapid) Negative (Negative) Influenza B (Rapid) Negative (Negative) Result Diagrams: 12/07/16 07:47 12/07/16 07:47 Lab Statement: Any lab studies that have been ordered have been reviewed, and results considered in the medical decision making process. - Radiology CXR Xray Interpretation: Positive (See Comments) - IMPRESSION: STABLE CHRONIC INTERSTITIAL CHANGES. Radiology Interpretation Completed By: Radiologist - ED physician has reviewed this radiology report and agrees. Re-Evaluation - Re-Evaluation First Eval Re-Evaluation Time: 10:31 Comment: Reviewed pts lab and imaging results with the pt. Also discussed course of treatment and disposition, as well as follow up plans. Second Eval Re-Evaluation Time: 11:53 Change: Improved - pt is feeling better. 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 He was started on fluids and antibiiotics and the hospitalist service was immediately contacted for admission. - Diagnoses Provider Diagnoses: Sepsis Discharge - Discharge Plan Condition: Stable Disposition: ADMITTED TO [facility] documentation as recorded by the Chris gentile Benjamin accurately reflects the service I personally performed and the decisions made by me, Arya Mcdaniel MD.
[2016-12-07 14:30] LABS: Urine Bilirubin Negative (Negative); Urine Glucose Negative (Negative); Urine Nitrite Negative (Negative)
[2016-12-07] MEDS ORDERED: NS 0.9% 1000 ML* 1,000 ML IV SCH (14:30)
[2016-12-07] MEDS: Enoxaparin(*) 40 MG/0.4 ML SYR SUBCUT SCH (14:40)
[2016-12-07] MEDS: carBAMazepine TAB(*) 200 MG PO SCH ×2 (14:43→20:36)
[2016-12-07] MEDS ORDERED: Ibuprofen TAB* 600 MG PO ONE (19:21)
--- NOTE | 2016-12-07 22:10 | CONS ---
PULMONARY CONSULTATION REPORT: DATE OF CONSULTATION: 12/07/16 CONSULTATION REQUESTED BY: Dr. Merino. REASON FOR CONSULTATION: Evaluation of abnormality noted on chest x-ray, shortness of breath. 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 The patient was in usual state of health until 3 days ago, started having cough and generalized malaise, cough persisted over the next 2 days, had also chills, woke up with drenching sweats last night and had chills this morning. He felt weak while walking his dog and decided to go to convenient care. He was found to be febrile with temperature of 101.5, tachycardic with heart rate of 130 and was also found to have blood pressure of 96/50. He was sent into the emergency room for evaluation of sepsis. He was noted to have elevated lactate on the labs. He did not have elevated white count; however, had left shift. He denied chest pain, palpitations, nausea, vomiting, diarrhea, urinary complaints , rash, recent travel, recent sick contact. Chest x-ray performed in the emergency room was personally reviewed by me in comparison with his CXRs and CT scans done in the past. The patient noted to have interstitial opacities bilaterally. I have not seen any significant change in comparison with prior chest x-ray from June of 2016. He did have evidence of pulmonary nodules with bronchovascular distribution bilaterally, no significantly enlarged mediastinal or hilar nodes were noted. He has seen Pulmonology at [facility] and also in [facility]. He was told that he does not have sarcoidosis and he probably has interstitial lung disease of unclear etiology. His PFTs have been monitored closely and they were within normal limits. Dr. Molina reports shortness of breath with exertion and exercise that he has not noticed before. He had stress test, which revealed onset of left bundle branch block with exercise without any persistent evidence of ischemia. He denies longstanding cough. PAST MEDICAL HISTORY: 1. Seizure disorder. 2. Interstitial lung disease of unclear etiology, never biopsied. 3. Diverticulosis. 4. Had chest pain in June of 2016, acute coronary syndrome was ruled out, stress test was negative, was prescribed omeprazole for patient's GERD. MEDICATIONS: Carbamazepine 400 mg p.o. b.i.d. ALLERGIES: NITROFURANTOIN, no seasonal allergies. FAMILY HISTORY: Colon cancer in family, coronary artery disease, and AFib also present. 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 No history of alcohol, tobacco , or drug abuse. REVIEW OF SYSTEMS: All 14 systems were reviewed and as per HPI. PHYSICAL EXAMINATION: Well-built male in bed in no apparent distress. Vital Signs: Temperature 98.2, pulse 87 beats per minute, respiratory rate 23 beats per minute, O2 sat 96% to 97% on room air, blood pressure 129/76. HEENT: Pupils equal and reactive to light, mucous membranes moist, Mallampati class IV airway, uvula was big. No pharyngeal erythema was noted. Lungs: Good air entry bilaterally. No crackles. Cardiovascular: S1, S2 present. Regular rate and rhythm. No murmurs, gallops, or rubs. Abdomen: Soft, nontender, nondistended. Bowel sounds present. Extremities: Normal range of motion. No edema, pulses 2+ bilaterally. Neurologic: Alert, awake, oriented x3. No focal deficits. DIAGNOSTIC STUDIES/LAB DATA: WBC count 7.3, hemoglobin 12.3, hematocrit 37, platelet count 161. Sodium 133, potassium 4.0, chloride 101, bicarbonate 22, anion gap 10, BUN 12, creatinine 1.05, glucose 246, lactic acid 3.8 on admission and repeat level of 1.1, hemoglobin A1c 5.1, CRP 88.72. LFTs within normal limits. Chest x-ray as described above in HPI. IMPRESSION AND RECOMMENDATIONS: 61-year-old male with cough, fever, shortness of breath, tachycardia, and tachypnea. 1. Sepsis secondary to viral upper respiratory infection/pneumonia. 2. Interstitial lung disease with suspicion for possible sarcoidosis. Symptoms are likely viral URI related, c/w supportive care. Donot suspect exacerbation of ILD. He never had biopsy of underlying lung disease. Stage III sarcoidosis can present with infiltrates involving bronchovascular bundle without mediastinal adenopathy. He can have possible other interstitial lung disease, which appears to be stable as noted from imaging studies. He has reported onset of left bundle branch block with exercise without other evidence of ischemia, which needs to be evaluated for sarcoid involvement of the heart if the lung findings are attributable to sarcoidosis. Holter monitoring and cardiac MRI might be considered. He does need close follow up with regular PFTs every 6 months or earlier if symptoms change. No need for CT scan at this time. Would follow up with serial x-rays. I agree with doing Levaquin for possible community acquired pneumonia. Flu testing was negative. Thank you for allowing me to participate in the care of your patient. I have discussed the above findings with Dr. Merino. [id number]/[facility] #: [id number] FRANCISCA
[2016-12-07] MEDS ORDERED: traMADol TAB* 50 MG PO PRN (23:26)
[2016-12-08] MEDS ORDERED: Ibuprofen TAB* 600 MG PO PRN (07:12)
[2016-12-08 08:20] LABS: Hematocrit 32 % (42-52); Hemoglobin 11.1 g/dl (14.0-18.0); Mean Corpuscular HGB Conc 35 g/dl (31-36); Mean Corpuscular Hemoglobin 32 pg (27-31); Mean Corpuscular Volume 93 fL (80-94); Mean Platelet Volume 6 um3 (7.4-10.4); Red Blood Count 3.45 10^6/ul (4.0-5.4); Red Cell Distribution Width 13 % (10.5-15); White Blood Count 5.7 10^3/ul (3.5-10.8)
[2016-12-08 08:32] LABS: BUN/Creatinine Ratio 14.7 (8-20); Calcium 8.2 mg/dL (8.6-10.3); EGFR African American 135.7 (>60); EGFR Non-African American 105.5 (>60); Potassium 3.9 mmol/L (3.5-5.0)
[2016-12-08] MEDS ORDERED: Levofloxacin 750 MG IVPREMIX(* 750 MG/150 ML BAG IVPB SCH (09:00)
[2016-12-08] MEDS: carBAMazepine TAB(*) 200 MG PO SCH (09:07)
--- NOTE | 2016-12-08 10:55 | PN ---
Progress Note - Progress Note Date of Service: 12/08/16 Note: CRITICAL CARE MEDICINE Date: 12/08/16 Time: 1000 SUBJECTIVE: Patient seen and examined. at bedside. PHYSICAL EXAM: Vital Signs: Reviewed. Hr 80-90s. some tachypnea returns with activity Neurologic: nonfocal HEENT: pupils equal. Sclera anicteric. Trachea midline. Cardiovascular: S1 S2 Respiratory: clear bl, mildly distant however; no wheeze, nor rales Abdomen: Soft, nt. Extremities: Warm. Access: piv LABS: Reviewed. wbc 5.7, cr 0.75 from 1. cx ngtd. flu neg. reviewed labs with pt IMAGING: Reviewed. CXR reviewed with pt. MEDICATIONS: Reviewed. ASSESSMENT: 61 M Sepsis sec to viral>cesar pneumonia; really more post viral sirs ailment Treatment for community acquired pneumonia Underlying mild degree of unclear ILD Chronic seizure disorder PLAN: better. likely more dynamic of post viral lacking reserve for recovery requiring hospitalization for fluids and IV abx. turning around well. doubt blossoming infiltrate on cxr and not much need to repeat as given his dynamics best to treat with 7 day course fluids can stop. po. no o2. time for equilibration and see how he is on his feet today potential for home much later today or tomorrow recovering stress response hyperglycemia, not DM. primary care can f/u understands he should resume outpt pulm f/u's Supportive and preventative care as ordered. Vaccine: up to date SUP: po VTE prophylaxis: lovenox Disposition: to floor or home today Code Status: Full Critical Care Time: 30min Lina Tabor DO
[2016-12-08] MEDS: Enoxaparin(*) 40 MG/0.4 ML SYR SUBCUT SCH (11:12)
[2016-12-08 14:32] VITALS: BP 138/76
--- NOTE | 2016-12-08 14:46 | DS ---
CRITICAL CARE MEDICINE DISCHARGE SUMMARY ADMISSION DATE: 12/07/2016 ICU ADMISSION DATE: 12/07/2016 ICU DISCHARGE DATE: 12/08/2016 PRIMARY CARE PROVIDER: None. REFERRING PHYSICIAN: Dr. Arya Mcdaniel. DIAGNOSIS: 1. Sepsis syndrome on admission. 2. Viral pneumonia. 3. Treatment for community acquired pneumonia. 4. Lactic acidosis on admission. MEDICATIONS AT DISCHARGE: Resume home medications: Tegretal 400mg BID. New medications: Levaquin 500mg po daily times 5 days. ALLERGIES: Nitrofurantoin. HOSPITAL COURSE: 61 year old male admitted after several days of symptomatic home treatment for possible pneumonia, presenting through urgent care and then emergency department for sepsis secondary to pneumonia. Sepsis bundle and antibiotics given with clinical improvement. Lactic acid cleared quickly from 3.8 on admission. Overall condition improved. Influenza screen negative. Cultures no growth to date. No oxygen requirement and vitals have been stable. Ambulating. Reliable. Okay for discharge to home. DISPOSITION: Home. DIET: Regular. ACTIVITY: At liberty. CODE STATUS: FULL. FOLLOW UP: Self referral for new primary care provider and then consider pulmonary follow up with outpatient pulmonary function testing. Lina Tabor DO
[2016-12-09] MEDS ORDERED: Levofloxacin TAB* 500 MG PO SCH (09:00)
== END 2016-12-08 15:15 | disposition home or self-care (01) | DRG 720 ==
LOC: ED 08:26 → ICU 10:48
PROVIDERS: ADMIT Internal Medicine; ATTEND Internal Medicine Critical Care Medicine
DX: A41.9 Sepsis, unspecified organism (principal); J12.9 Viral pneumonia, unspecified; E87.2 Acidosis; J84.9 Interstitial pulmonary disease, unspecified; J18.8 Other pneumonia, unspecified organism; G40.909 Epilepsy, unspecified, not intractable, without status epilepticus; R73.9 Hyperglycemia, unspecified; K57.90 Diverticulosis of intestine, part unspecified, without perforation or abscess without bleeding; Z80.0 Family history of malignant neoplasm of digestive organs; Z82.49 Family history of ischemic heart disease and other diseases of the circulatory system; Z88.8 Allergy status to other drugs, medicaments and biological substances
CPT/HCPCS: 36415; 71010; 80048; 80053; 80156; 81003; 83036; 83605; 84484; 85025; 85610; 86140; 87040; 87502; 87641; 87899; 94760; 99213; A9270-GY; G0463; J1650